=== PATIENT | male | born 1975 | race Caucasian/White ===

== ENCOUNTER 2017-07-15 21:46 | Emergency (ER) | payer OTHER ==
[~2017-07-15] VITALS: Ht 177.8 cm; Wt 90.7 kg
[2017-07-15] MEDS ORDERED: IBUPROFEN600 MG ORAL (21:56)
[2017-07-15] MEDS ORDERED: EFFEXOR XR150 MG ORAL (21:56)
[2017-07-15 21:57] VITALS: BP 124/87
[2017-07-15] MEDS ORDERED: VENLAFAXINE HC150 MG ORAL (22:03)
[2017-07-15 22:12] VITALS: BP 124/87
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
== END 2017-07-15 22:15 | disposition home or self-care (01) ==
LOC: EMR 22:05
DX: Z76.0 Encounter for issue of repeat prescription (principal)
CPT/HCPCS: 99283